=== PATIENT | male | born 1995 | race Caucasian/White ===

== ENCOUNTER → 2017-09-28 | Outpatient (CLI) | payer OTHER ==
--- NOTE | 2017-09-28 11:38 | DIAGNOSTIC IMAGING REPORT ---
CHEST 2 VIEWS ROUTINE CLINICAL HISTORY: R05 [id number] cough. Dyspnea. COMPARISON STUDY: No previous studies for comparison. FINDINGS: The bones soft tissues and hemidiaphragms are normal. The cardiomediastinal silhouette is normal. The lungs are clear. The pulmonary vasculature is normal. IMPRESSION: Negative chest. The above report was generated using voice recognition software. It may contain grammatical, syntax or spelling errors. Electronically signed by: Snader Greer M.D. 09/28/2017 11:36 AM Dictated Date/Time: 09/28/2017 11:36 AM
[2017-10-04 20:18] LABS: ALTERNARIA CLASS 0; ALTERNARIA IGE <0.10 KU/L; ANA SCREEN Negative (Negative); ASPERG FUMIG CLASS 0; ASPERG FUMIG IGE <0.10 KU/L; BAHIA GRASS ASM CLASS 0; BAHIA GRASS IGE <0.10 KU/L; BEEF CLASS 0; BEEF IGE <0.10 KU/L; BERMUDA GRASS CLASS 0; BERMUDA GRASS IGE <0.10 KU/L; BIRCH CLASS 0; BLACK LOCUST CLASS 0; BLACK LOCUST IGE <0.35 kU/L (<0.35); CAT DANDER CLASS 0; CHOCOLATE CLASS 0; CHOCOLATE IGE <0.10 KU/L; CLADOSPORIUM HER CLASS 0; CLADOSPORIUM HER IGE <0.10 KU/L; CLAM CLASS 0; CLAM IGE <0.10 KU/L; COCKROACH CLASS 0; CORN CLASS 0; CORN IGE <0.10 KU/L; CRAB CLASS 0; CRAB IGE <0.10 KU/L; D. FARINAE CLASS 3; D. FARINAE IGE 8.46 KU/L; D. PTERONYSSINUS CLASS 3; D. PTERONYSSINUS IGE 5.23 KU/L; DOG DANDER CLASS 0; EGG MIX CLASS 0; EGG MIX IGE <0.10 KU/L; ELM CLASS 0; ENGLISH PLAN CLASS 0; ENGLISH PLAN IGE <0.10 KU/L; JOHNSON CLASS 0; JOHNSON IGE <0.10 KU/L; JUNE (KENTUCKY BLUE) CLASS 0; JUNE IGE <0.10 KU/L; LOBSTER CLASS 0; LOBSTER IGE <0.10 KU/L; MAPLE (BOX ELDER) IGE <0.10 KU/L; MAPLE CLASS 0; MOUNTAIN CEDAR ASM CLASS 0; MOUNTAIN CEDAR IGE <0.10 KU/L; MUCOR CLASS 0; MUCOR IGE <0.10 KU/L; NETTLE CLASS 0; NETTLE IGE <0.10 KU/L; PEANUT IGE <0.10 KU/L; PENIC NOTATUM CLASS 0; PENIC NOTATUM IGE <0.10 KU/L; PORK CLASS 0; PORK IGE <0.10 KU/L; ROUGH PIGWEED CLASS 0; ROUGH PIGWEED IGE <0.10 KU/L; SHORT RAGWEED CLASS 0; SHORT RAGWEED IGE <0.10 KU/L; SHRIMP CLASS 0; SOY CLASS 0; SOY IGE <0.10 KU/L; STEMPHY BOTRY CLASS 0; STEMPHY BOTRY IGE <0.10 KU/L; WHEAT CLASS 0/1; WHEAT IGE 0.11 KU/L; WHITE HICKORY ASM CLASS 0; WHITE HICKORY IGE <0.10 kU/L (<0.35); WHITE MULBERRY CLASS 0; WHITE MULBERRY IGE <0.10 KU/L
== END | disposition home or self-care (01) ==
LOC: C.RAD1850 11:07
PROVIDERS: ATTEND Internal Medicine Pulmonary Disease
DX: R05 Cough (principal); L50.9 Urticaria, unspecified